=== PATIENT | female | born 1985 | race Caucasian/White ===

== ENCOUNTER 2020-03-06 13:57 | Observation (INO) | payer OTHER ==
[2020-03-06 14:39] VITALS: BP 118/67; PULSE 93
--- NOTE | 2020-03-07 12:25 | XRAY ---
Exam: OB biophysical profile without nonstress from 03/06/2020. Comparison: OB biophysical profile without nonstress from 02/27/2020. Indication: . Findings: Assessment of breathing movements, gross body movements, tone, and qualitative amniotic fluid volume each revealed a score of 2 points for each category resulting in a total score of 8 points out of a maximum of 8 points. Previous biophysical profile score was 6 points out of a maximum of 8 points on 02/27/2020. 2 longitudinal transvaginal images were obtained of the cervical canal. One measurement was 3.16 cm and the other measurement was 3.34 cm for an average of 3.25 cm. The cervical canal appears closed. Impression: 1. Biophysical profile score is 8 points out of a maximum of 8 points, previously 6 points out of a maximum of 8 points on 02/27/2020. 2. Maternal cervical canal length average is 3.25 cm. It appears closed. There is no evidence of placenta previa.
--- NOTE | 2020-03-07 12:29 | XRAY ---
Exam: OB transvaginal ultrasound from 03/06/2020. Comparison: OB ultrasound follow-up from 02/20/2020. Indication: , cervical canal length. Findings: The fetus is in the cephalic lie. Previous cervical canal length measured 3.16 cm and 3.34 cm on 2 separate measurements for an average of 3.25 cm. The maternal cervical canal is closed. There is no evidence of placenta previa. Amniotic fluid index measured 15.86 cm, previous 18.6 cm on 02/20/2020. A cine loop was obtained of the beating heart. However, a measurement of the heart rate was not performed.
== END 2020-03-06 16:20 | disposition home or self-care (01) ==
LOC: OB 13:57
PROVIDERS: ADMIT Family Medicine; ATTEND Family Medicine
DX: Z34.83 Encounter for supervision of other normal pregnancy, third trimester (principal)
CPT/HCPCS: 59025; 76817; 76819; G0378

== ENCOUNTER 2020-04-03 15:19 | Inpatient (IN) | payer OTHER ==
[2020-04-03] MEDS ORDERED: XYLOCAINE 1% HCL 20 ML MDV IJ PRN (19:20)
[2020-04-03] MEDS ORDERED: Zofran 4 MG/2 ML VIAL IV PRN (19:20)
[2020-04-03 20:40] LABS: Absolute Neutrophil Ct (ANC) 8.65 (1.4-6.9); BASOPHIL % 0.2 % (0.0-0.4); Basophil (Absolute #) 0.03 (0-0.4); Eosinophil % 2.2 % (0.00-5.0); Eosinophil (Absolute #) 0.29 (0-0.5); Hematocrit 37.3 % (35-47); Hemoglobin 12.6 gm/dl (12.0-16.0); Lymphocyte (Absolute #) 3.19 (1.0-4.6); Lymphocytes % 24.4 % (24.0-44.0); Mean Corpuscular Hemoglobin 30.1 pg (26-32); Mean Corpuscular Hgb Concent. 33.8 g/dl (32-36); Mean Platelet Volume 12.3 fl (7.5-11.0); Monocyte (Absolute #) 0.91 (0.0-1.3); Neutrophil % 66.2 % (36.0-66.0); Platelet Count 159 K/mm3 (150-450); Red Blood Count 4.19 M/mm3 (4.1-5.4); Red Cell Distribution Width 13.9 % (11.5-14.0); White Blood Count 13.1 K/mm3 (4.0-10.5)
[2020-04-03 21:10] LABS: Amphetamine,Urine NEGATIVE (NEGATIVE); Barbiturate,Urine NEGATIVE (NEGATIVE); Benzodiazepine,Urine NEGATIVE (NEGATIVE); Cocaine,Urine NEGATIVE (NEGATIVE); Methadone,Urine NEGATIVE (NEGATIVE); Opiate,Urine NEGATIVE (NEGATIVE); PCP,Urine NEGATIVE (NEGATIVE); THC,Urine NEGATIVE (NEGATIVE)
[2020-04-03 21:21] LABS: Appearance CLEAR (CLEAR); Bacteria FEW /HPF (NEGATIVE); Bilirubin NEGATIVE (NEGATIVE); Blood SMALL Ery/ul (0-5); Epithelial Cells RARE /HPF (FEW); Glucose NEGATIVE (NEGATIVE); Ketones NEGATIVE (NEGATIVE); Leukocyte Esterase NEGATIVE (NEGATIVE); Nitrite NEGATIVE (NEGATIVE); Protein,Urine Dip NEGATIVE (Negative); Specific Gravity 1.008 (1.005-1.025); Urobilinogen NEGATIVE mg/dL (0-1); WBC 0-2 /HPF (0-5)
[2020-04-03] MEDS ORDERED: OB EPIDURAL NAROPIN/SUFENTANIL IN NACL EPIDURAL PRN (23:52)
[2020-04-03] MEDS ORDERED: Ephedrine Sulfate 50 MG/ML IV PRN (23:52)
[2020-04-04] MEDS ORDERED: Lactated Ringers 1,000 ML IV ONE (04:00)
[2020-04-04] MEDS ORDERED: PITOCIN 30 UNITS/ LR 500 ML 30 UNITS/500 ML IV.SOLN. IV SCH ×2 (08:00)
[2020-04-04] MEDS: Lactated Ringers 1,000 ML IV SCH ×2 (09:26→12:37)
[2020-04-04 12:55] LABS: Amphetamine,Urine NEGATIVE (NEGATIVE); Barbiturate,Urine NEGATIVE (NEGATIVE); Benzodiazepine,Urine NEGATIVE (NEGATIVE); Cocaine,Urine NEGATIVE (NEGATIVE); Methadone,Urine NEGATIVE (NEGATIVE); Opiate,Urine NEGATIVE (NEGATIVE); PCP,Urine NEGATIVE (NEGATIVE); THC,Urine NEGATIVE (NEGATIVE)
[2020-04-04] MEDS ORDERED: NORCO 5/325 MG PO PRN (13:52)
[2020-04-04] MEDS ORDERED: LANSINOH 40 GM TOP PRN (13:52)
[2020-04-04] MEDS ORDERED: TUCKS TP PRN (13:52)
[2020-04-04] MEDS ORDERED: Dermoplast Spray TP PRN (13:52)
[2020-04-04] MEDS: MOTRIN 400 MG PO PRN (19:35)
[2020-04-04] MEDS ORDERED: Colace 100 MG ONE (21:22)
[2020-04-04] MEDS: TYLENOL EXTRA STRENGTH 500 MG PO PRN (22:25)
[2020-04-05] MEDS: MOTRIN 400 MG PO PRN ×3 (05:30→22:10)
[2020-04-05] MEDS: TYLENOL EXTRA STRENGTH 500 MG PO PRN ×4 (05:59→22:09)
[2020-04-05 06:05] LABS: Absolute Neutrophil Ct (ANC) 7.12 (1.4-6.9); BASOPHIL % 0.2 % (0.0-0.4); Basophil (Absolute #) 0.02 (0-0.4); Eosinophil % 2.3 % (0.00-5.0); Eosinophil (Absolute #) 0.28 (0-0.5); Hematocrit 32.8 % (35-47); Hemoglobin 10.9 gm/dl (12.0-16.0); Lymphocyte (Absolute #) 3.54 (1.0-4.6); Lymphocytes % 29.3 % (24.0-44.0); Mean Cell Volume 90.6 fl (78-100); Mean Corpuscular Hemoglobin 30.1 pg (26-32); Mean Corpuscular Hgb Concent. 33.2 g/dl (32-36); Mean Platelet Volume 11.8 fl (7.5-11.0); Monocyte (Absolute #) 1.13 (0.0-1.3); Monocytes % 9.3 % (0.0-12.0); Neutrophil % 58.9 % (36.0-66.0); Platelet Count 138 K/mm3 (150-450); Red Blood Count 3.62 M/mm3 (4.1-5.4); Red Cell Distribution Width 13.9 % (11.5-14.0); White Blood Count 12.1 K/mm3 (4.0-10.5)
[2020-04-05] MEDS ORDERED: FERREX 150 PO SCH (10:00)
[2020-04-05] MEDS ORDERED: NON-FORMULARY ITEM (Prenatal Vits W-Ca,Fe,Fa(<1mg) [Prenatal] 1 TAB) PO SCH (10:00)
[2020-04-05] MEDS: Pepcid 20 MG PO SCH ×2 (10:16→22:09)
[2020-04-05] MEDS: THERAGRAN MULTIVITAMIN PO SCH (10:16)
[2020-04-05] MEDS: Colace 100 MG PO SCH ×2 (10:16→22:10)
[2020-04-05] MEDS: FEOSOL 325 MG PO SCH (10:16)
[2020-04-05 21:31] VITALS: O2SAT 98
[2020-04-05] MEDS ORDERED: Colace 100 MG PO SCH (22:00)
[2020-04-06] MEDS: FEOSOL 325 MG PO SCH (12:01)
[2020-04-06] MEDS: MOTRIN 400 MG PO PRN (12:01)
[2020-04-06] MEDS: Pepcid 20 MG PO SCH (12:02)
[2020-04-06] MEDS: Colace 100 MG PO SCH (12:02)
[2020-04-06] MEDS: THERAGRAN MULTIVITAMIN PO SCH (12:02)
[2020-04-06 14:26] VITALS: BP 122/79; PULSE 88
== END 2020-04-06 14:00 | disposition home or self-care (01) | DRG 807 ==
LOC: OB 19:50 → OBSVTOIN 04-04 05:15
PROVIDERS: ADMIT Family Medicine; ATTEND Family Medicine
PROC: 10E0XZZ Delivery of Products of Conception, External Approach (ICD-10-PCS; principal; 2020-04-04)
DX: O80 Encounter for full-term uncomplicated delivery (principal); Z37.0 Single live birth; Z3A.39 39 weeks gestation of pregnancy
CPT/HCPCS: 36415; 80307; 81001; 85025; 87340; G0378; J2590; J2795; A9270-GY

== ENCOUNTER 2024-06-03 17:20 | Inpatient (IN) | payer SELFPAY ==
[2024-06-03 17:56] LABS: AMNISURE TEST RESULTS POSITIVE (NEGATIVE)
[2024-06-03 18:07] LABS: Appearance Cloudy (Clear); Bacteria Many /HPF (None Seen); Bilirubin Negative (Negative); Blood Negative (Negative); Epithelial Cells Many /HPF (None Seen); Glucose, Urine Negative (Negative); Ketones Negative (Negative); Leukocyte Esterase Moderate (Negative); Nitrite Negative (Negative); Ph 5.5 (4.6-8.0); Protein,Urine Dip 30 (Negative); Specific Gravity 1.025 (1.005-1.030); WBC >100 /HPF (0-5)
[2024-06-03 18:09] LABS: Amphetamine,Urine NEGATIVE (NEGATIVE); Barbiturate,Urine NEGATIVE (NEGATIVE); Benzodiazepine,Urine NEGATIVE (NEGATIVE); Cocaine,Urine NEGATIVE (NEGATIVE); Methadone,Urine NEGATIVE (NEGATIVE); Opiate,Urine NEGATIVE (NEGATIVE); PCP,Urine NEGATIVE (NEGATIVE); THC,Urine NEGATIVE (NEGATIVE)
[2024-06-03] MEDS ORDERED: XYLOCAINE 1% HCL 20 ML MDV IJ PRN (18:19)
[2024-06-03 18:23] LABS: Trichomonas Rare /HPF (None Seen)
[2024-06-03] MEDS ORDERED: Lactated Ringers 1,000 ML IV ONE (18:28)
[2024-06-03] MEDS ORDERED: OMNIPEN 2 GM ONE ×2 (18:28→18:31)
[2024-06-03] MEDS ORDERED: Sodium Chloride 100ML MINI-BAG PLUS 0 ML IV ONE (18:31)
[2024-06-03] MEDS: OMNIPEN 2 GM*** 2 G in Sodium Chloride 100ML MINI-BAG PLUS 100 ML IV ONE (18:36)
[2024-06-03] MEDS: Lactated Ringers 1,000 ML IV SCH (18:38)
[2024-06-03 18:40] LABS: Absolute Neutrophil Ct (ANC) 7.01 x10^3/uL (1.56-6.13); BASOPHIL % 0.3 % (0.1-1.2); Basophil (Absolute #) 0.03 x10^3/uL (0.01-0.08); Eosinophil % 1.8 % (0.7-5.8); Eosinophil (Absolute #) 0.19 x10^3/uL (0.04-0.36); Hematocrit 31.5 % (34.1-44.9); Hemoglobin 10.9 g/dL (11.2-15.7); IMMATURE GRAN # 0.04 x10^3u/L (0.001-0.031); IMMATURE GRAN % 0.4 % (0.001-0.429); Lymphocyte (Absolute #) 2.58 x10^3/uL (1.18-3.74); Lymphocytes % 24.9 % (19.3-51.7); Mean Cell Volume 85.1 fL (79.4-94.8); Mean Corpuscular Hemoglobin 29.5 pg (25.6-32.2); Mean Corpuscular Hgb Concent. 34.6 g/dL (32.2-35.5); Mean Platelet Volume 11.5 fL (9.4-12.3); Monocyte (Absolute #) 0.53 x10^3/uL (0.24-0.86); Monocytes % 5.1 % (4.7-12.5); Neutrophil % 67.5 % (34.0-71.1); Platelet Count 148 x10^3/uL (182-369); Red Cell Distribution Width 13.2 % (11.7-14.4); White Blood Count 10.4 x10^3/uL (3.98-10.04)
[2024-06-03 19:26] LABS: ABO TYPING B; Antibody Screen NEGATIVE (NEGATIVE); RH TYPING POSITIVE
[2024-06-03] MEDS: PITOCIN 30 UNITS/ LR 500 ML 30 UNITS/500 ML PLAST..BAG IV SCH (19:42)
[2024-06-03] MEDS ORDERED: Unasyn 1.5GM Vial ONE (21:53)
[2024-06-03] MEDS ORDERED: Sodium Chloride 100ML MINI-BAG PLUS 100 ML IV ONE (21:53)
[2024-06-03] MEDS ORDERED: SODIUM CHLORIDE IV ONE (22:10)
[2024-06-03] MEDS: OMNIPEN 1 GM*** 1 GM in Sodium Chloride 100ML MINI-BAG PLUS 100 ML IV SCH (22:32)
[2024-06-04] MEDS ORDERED: Lactated Ringers 1,000 ML IV ONE (01:56)
[2024-06-04] MEDS ORDERED: Ephedrine Sulfate 50 MG/ML IV PRN (02:08)
[2024-06-04] MEDS ORDERED: FENTANYL 2 MCG-BUPIV 0.125%-NS 250 ML Epidur 250 ML EPIDURAL SCH (02:15)
[2024-06-04] MEDS: Lactated Ringers 1,000 ML IV ONE (02:32)
[2024-06-04] MEDS ORDERED: FENTANYL 2 MCG-BUPIV 0.125%-NS 250 ML Epidur 250 ML EPIDURAL ONE (02:54)
[2024-06-04] MEDS ORDERED: TUCKS TP PRN (04:17)
[2024-06-04] MEDS ORDERED: Dermoplast Spray TP PRN (04:17)
[2024-06-04] MEDS ORDERED: TYLENOL EXTRA STRENGTH 500 MG PO PRN (04:17)
[2024-06-04] MEDS: Flagyl 500 MG PO SCH (10:34)
[2024-06-04] MEDS: Docusate Sodium 100 MG PO SCH (10:35)
[2024-06-04] MEDS: FERREX 150 PO SCH (10:35)
[2024-06-04] MEDS: MOTRIN 400 MG PO PRN (10:39)
[2024-06-05 05:31] VITALS: O2SAT 99
[2024-06-05 06:47] LABS: Absolute Neutrophil Ct (ANC) 5.35 x10^3/uL (1.56-6.13); BASOPHIL % 0.4 % (0.1-1.2); Basophil (Absolute #) 0.04 x10^3/uL (0.01-0.08); Eosinophil % 2.8 % (0.7-5.8); Eosinophil (Absolute #) 0.27 x10^3/uL (0.04-0.36); Hematocrit 29.7 % (34.1-44.9); Hemoglobin 9.9 g/dL (11.2-15.7); IMMATURE GRAN # 0.03 x10^3u/L (0.001-0.031); IMMATURE GRAN % 0.3 % (0.001-0.429); Lymphocyte (Absolute #) 3.34 x10^3/uL (1.18-3.74); Lymphocytes % 34.6 % (19.3-51.7); Mean Cell Volume 87.1 fL (79.4-94.8); Mean Corpuscular Hgb Concent. 33.3 g/dL (32.2-35.5); Mean Platelet Volume 11.3 fL (9.4-12.3); Monocyte (Absolute #) 0.62 x10^3/uL (0.24-0.86); Monocytes % 6.4 % (4.7-12.5); Neutrophil % 55.5 % (34.0-71.1); Platelet Count 133 x10^3/uL (182-369); Red Blood Count 3.41 x10^6/uL (3.93-5.22); Red Cell Distribution Width 13.4 % (11.7-14.4); White Blood Count 9.7 x10^3/uL (3.98-10.04)
[2024-06-05 07:16] LABS: Slide Review 1 YES
[2024-06-05 07:42] LABS: HBsAg Screen Negative (Negative); RPR Non Reactive (Non Reactive)
--- NOTE | 2024-06-05 08:47 | PCM.DS ---
Discharge Summary Date of Admission: 06/03/24 17:20 Admitting Physician: KELTON BARAJAS Consults: Consults on Case 06/04/24 02:09 Notify Anesthesia Provider PRN 06/04/24 04:18 Notify Physician ROUTINE 06/04/24 15:43 Navigation ONCE Primary Care Provider: KELTON BARAJAS Allergies Allergies No Known Drug Allergies Allergy (Verified 06/03/24 17:45) Hospital Summary - Hospital Course Hospital Course: patient had an uncomplicated vaginal delivery at term, scant care. GBS unknown and received ampicillin x 3 doses in labor, ruptured the day prior to arrival. , no problems - Vitals & Intake/Output Vital Signs: Vital Signs Temperature 97.6 F 06/04/24 21:00 Pulse Rate 72 06/05/24 03:00 Respiratory Rate 18 06/05/24 03:00 Blood Pressure 114/69 06/05/24 03:00 O2 Sat by Pulse Oximetry 99 06/05/24 03:00 Intake & Output: Intake & Output 06/02/24 06/03/24 06/04/24 06/05/24 11:59 11:59 11:59 11:59 Intake Total 480 600 Balance 480 600 Weight 72.91 kg - Lab Result Diagrams: 06/05/24 06:45 Lab Results-Last 24 Hrs: Lab Results-Last 24 Hours 06/03/24 06/05/24 Range/Units 18:28 06:45 WBC 9.7 (3.98-10.04) x10^3/uL RBC 3.41 L (3.93-5.22) x10^6/uL Hgb 9.9 L (11.2-15.7) g/dL Hct 29.7 L (34.1-44.9) % MCV 87.1 (79.4-94.8) fL MCH 29.0 (25.6-32.2) pg MCHC 33.3 (32.2-35.5) g/dL RDW 13.4 (11.7-14.4) % Plt Count 133 L (182-369) x10^3/uL MPV 11.3 (9.4-12.3) fL Gran % 55.5 (34.0-71.1) % Immature Gran % (Auto) 0.3 (0.001-0.429) % Nucleat RBC Rel Count 0.0 (0.00-0.2) % Eos # (Auto) 0.27 (0.04-0.36) x10^3/uL Immature Gran # (Auto) 0.03 (0.001-0.031) x10^3u/L Absolute Lymphs (auto) 3.34 (1.18-3.74) x10^3/uL Absolute Monos (auto) 0.62 (0.24-0.86) x10^3/uL Absolute Nucleated RBC 0.00 (0.00-0.012) x10^3u/L Lymphocytes % 34.6 (19.3-51.7) % Monocytes % 6.4 (4.7-12.5) % Eosinophils % 2.8 (0.7-5.8) % Basophils % 0.4 (0.1-1.2) % Absolute Granulocytes 5.35 (1.56-6.13) x10^3/uL Basophils # 0.04 (0.01-0.08) x10^3/uL RPR Non Reactive (Non Reactive) Hep Bs Antigen Negative (Negative) HIV-1 RNA Qualitative Pending HIV-2 RNA Qual (RT-PCR) Pending Slides for Path Review YES - Procedures and Test Procedures and Tests throughout Hospitalization: Therapy Orders & Screens 06/04/24 03:31 Standby STAT Comment: Diagnosis: R/O labor Discharge Exam General Appearance: no apparent distress Neurologic Exam: alert, oriented x 3 Respiratory Exam: normal breath sounds, lungs clear, No respiratory distress Cardiovascular Exam: regular rate/rhythm, normal heart sounds Gastrointestinal/Abdomen Exam: soft, No tenderness, No mass Extremity Exam: normal inspection, normal range of motion Skin Exam: normal color, warm, dry Final Diagnosis/Problem List - Final Discharge Diagnosis/Problem (1) Vaginal delivery Current Visit: No Status: Acute Code(s): O80 - ENCOUNTER FOR FULL-TERM UNCOMPLICATED DELIVERY (2) (infant) Current Visit: Yes Status: Acute Code(s): Z78.9 - OTHER SPECIFIED HEALTH STATUS (3) infection, trichomonal Current Visit: Yes Status: Acute Assessment & Plan: flagyl prescribed, advised partners need treated and notified Code(s): A59.00 - UROGENITAL TRICHOMONIASIS, UNSPECIFIED - Discharge Disposition: Home, Self-Care Condition: Stable Prescriptions: New Metronidazole 500 mg [Flagyl 500 MG] 500 mg PO BID 6 Days #12 tablet Continue Vits W-Ca,Fe,FA(<1Mg) [] 1 tab PO DAILY Sertraline HCl 50 mg [Zoloft 50 mg Tablet] 50 mg PO DAILY Famotidine 20 mg [Pepcid 20 MG] 1 tab PO BID Hydrocodone/Acetaminophen [Hydrocodone-Acetamin 5-325 mg] 1 each PO [id number] PRN PRN Reason: Pain Discontinued Ferrous Sulfate [Iron] 325 mg PO DAILY Follow up with: KELTON BARAJAS MD [Primary Care Provider] - 6 weeks
[2024-06-05 09:32] VITALS: BP 113/66; PULSE 81; RESP 20; TEMP 97.9
[2024-06-06 17:08] LABS: HIV-1 RNA Non Reactive (Non Reactive)
[2024-06-06 17:28] LABS: HIV-2 RNA Non Reactive (Non Reactive)
== END 2024-06-05 13:15 | disposition home or self-care (01) | DRG 759 ==
LOC: OB 17:20 → INTOOBSV 17:20 → OBSVTOIN 17:20
PROVIDERS: ADMIT Family Medicine; ATTEND Family Medicine
PROC: 10E0XZZ Delivery of Products of Conception, External Approach (ICD-10-PCS; principal; 2024-06-04)
DX: A59.00 Urogenital trichomoniasis, unspecified (principal); Z3A.38 38 weeks gestation of pregnancy; Z37.0 Single live birth
CPT/HCPCS: 36415; 80307; 81001; 84112; 85025; 86592; 86850; 86900; 86901; 87086; 87340; 87535; 87538; 94799; G0378; J0290; J0295; J2590; A9270-GY